=== PATIENT | male | born 1945 | race Caucasian/White ===

== ENCOUNTER 2019-10-05 10:25 | Emergency (ER) | payer OTHER ==
[~2019-10-05] VITALS: Ht 170.2 cm; Wt 80.3 kg
[2019-10-05 10:25] VITALS: BP_SYST 154
--- NOTE | 2019-10-05 10:32 | NUR ---
Patient triaged and placed in waiting room. VSS and patient appears in no acute distress at this time. Accompanied by , awaiting available bed, and MD notified of need for MSE. AFTER TRIAGE, PT STATES HE WANTED TO GO TO RESTROOM TO HAVE A BM. PT STATES THAT HE FELT LIKE ALL THE MEDICATION HE TOOK WAS STARTING TO WORK.
--- NOTE | 2019-10-05 10:47 | NUR ---
NO BEDS AVAILABLE AT THIS TIME. PT REMAINS IN RESTROOM
--- NOTE | 2019-10-05 11:01 | NUR ---
WENT UP TO CHIEF TECHNOLOGIST AND STATES THAT THEY ARE GOING TO LEAVE. LEFT WITHOUT BEING SEEN.
== END 2019-10-05 11:01 | disposition left against medical advice (07) ==
LOC: SED 10:25
DX: R10.9 Unspecified abdominal pain (principal); Z53.21 Procedure and treatment not carried out due to patient leaving prior to being seen by health care provider